=== PATIENT | male | born 1975 | race Caucasian/White ===

== ENCOUNTER 2020-05-15 06:34 | Emergency (ER) | payer MEDICAID ==
[~2020-05-15] VITALS: Ht 167.6 cm; Wt 80.3 kg
[2020-05-15] MEDS ORDERED: GELATIN SPONGE,ABSORBABLE 1 SPONGE SPONGE TP ONE (06:48)
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
[2020-05-15] MEDS ORDERED: TDAP [DIPH/PERTUSSIS/TET] 0.5 ML VIAL IM ONE ×2 (07:02→07:30)
[2020-05-15] MEDS ORDERED: AMOX-430 PO (07:15)
[2020-05-15] MEDS ORDERED: BACITRACIN ZINC OINT PACKET 1 EA PACKET TP ONE (07:30)
--- NOTE | 2020-05-15 07:39 | NUR ---
Patient discharged to home in stable condition. Written and verbal after care instructions given. Patient verbalizes understanding of instruction.
[2020-05-15 07:43] VITALS: BP 121/61
== END 2020-05-15 07:44 | disposition home or self-care (01) ==
LOC: ER 06:34
DX: S50.812A Abrasion of left forearm, initial encounter (principal); Y04.1XXA Assault by human bite, initial encounter; Y93.89 Activity, other specified; Y92.89 Other specified places as the place of occurrence of the external cause; Y99.8 Other external cause status
CPT/HCPCS: 90715